=== PATIENT | female | born 1965 | race Caucasian/White ===

== ENCOUNTER 2021-03-29 10:30 | Outpatient (REF) | payer OTHER, SELFPAY ==
[2021-03-29 10:33] LABS: MANUAL DIFF FLAG NO
[2021-03-29 10:52] LABS: Basophils Percent Auto 0.6 % (0-2); Eosinophils Absolute Auto 0.4 X10*3/uL (0.0-0.4); Eosinophils Percent Auto 6.8 % (0-4); Hemoglobin 13.8 g/dl (12.0-16.0); Imm Gran Abs Auto 0.01 X10*3/uL (0.00-0.03); Imm Gran Pct Auto 0.2 % (0.0-0.4); Lymphocytes Absolute Auto 2.8 X10*3/uL (1.2-4.9); Lymphocytes Percent Auto 43.2 % (20-40); Mean Corpuscular HGB Conc 32.9 g/dl (31.0-35.0); Mean Corpuscular Volume 97.4 fL (80-98); Mean Platelet Volume 9.6 fL (9.4-12.3); Monocytes Absolute Auto 0.6 X10*3/uL (0.1-1.2); Monocytes Percent Auto 9.8 % (2-11); Neutrophils Absolute Auto 2.5 X10*3/uL (2.0-8.3); Neutrophils Percent Auto 39.4 % (45-73); Platelet Count 254 X10*3/uL (160-400); Red Blood Count 4.31 X10*6/uL (4.20-5.50); Red Cell Distribution Width 12.6 % (11.0-16.0); White Blood Count 6.4 X10*3/uL (4.8-10.8)
[2021-03-29 11:04] LABS: Estimated Average Glucose 105 mg/dL; Glucose Urine UA NEG (NEG); Hemoglobin A1c % 5.3 %; Leukocyte Esterase Urine NEG (NEG); Nitrite Urine NEG (NEG); PH 5.5 (5.0-8.0); Specific Gravity - Urine >= 1.030 (1.005-1.025); Urine Blood NEG (NEG); Urine Ketones NEG (NEG); Urine Protein NEG (NEG-TRACE)
[2021-03-29 11:05] LABS: Alanine Aminotransferase 12 U/L (0-31); Alkaline Phosphatase 101 U/L (39-117); Anion Gap 14 (12-20); Aspartate Amino Transferase 15 U/L (5-31); Bilirubin Total 0.5 mg/dL (0.0-1.0); Blood Urea Nitrogen 13 mg/dL (9-16); Calcium 9.5 mg/dL (8.4-10.2); Carbon Dioxide 26 mmol/L (22-29); Chloride 107 mmol/L (96-108); Cholesterol 215 mg/dL; Estimated Glomerular Filt Rate > 60; Glucose Fasting 97 mg/dL (60-99); HDL Cholesterol 55 mg/dL; LDL Cholesterol Calculated 129 mg/dl; Potassium 4.2 mmol/L (3.3-5.1); Sodium 143 mmol/L (135-145); Total Protein 6.7 g/dL (6.5-8.0); Triglycerides 159 mg/dL
[2021-03-29 11:07] LABS: Appearance Urine HAZY; Color Urine YELLOW
[2021-03-29 11:19] LABS: Vitamin D 25-OH Total 34.2 ng/mL (>30)
== END 2021-03-29 10:31 | disposition home or self-care (01) ==
LOC: HO.LNP 10:30
PROVIDERS: Visit Provider Internal Medicine
DX: Z00.00 Encounter for general adult medical examination without abnormal findings (principal); D72.820 Lymphocytosis (symptomatic); R73.09 Other abnormal glucose; E78.00 Pure hypercholesterolemia, unspecified
CPT/HCPCS: 80053; 80061; 81003; 82043; 82306; 83036; 85025

== ENCOUNTER 2022-03-09 08:48 | Outpatient (REF) | payer OTHER, SELFPAY ==
--- NOTE | ~2022-03-09 | MM_ITS ---
EXAMINATION: MM SCREENING DIGITAL BREAST TOMOSYNTHESIS, BILATERAL CLINICAL INFORMATION: Screening. Asymptomatic. Prior history reduction mammoplasty 2018. The lifetime risk of breast cancer based on the Tyrer-Cuzick Model is 7%. COMPARISON: Outside mammography: 09/12/2018, 08/12/2017, 07/16/2016 ([facility]) TECHNIQUE: Digital breast tomosynthesis is performed in both the craniocaudal and mediolateral oblique views along with computer-aided detection (CAD). Synthesized 2D images are generated from the tomosynthesis. FINDINGS: The breasts are heterogeneously dense, which may obscure small masses (ACR BI-RADS breast composition Category c). The breasts are symmetrically smaller and there is minor scarring consistent with the reduction mammoplasty. The right breast has an incidental oil cyst with incompletely scattered rim calcifications retroareolar 12:30 o'clock position measuring 1.5 x 1.1 x 1.4 cm. There is no significant mass or suspicious architectural changes or abnormal calcifications. The axilla are unremarkable. MM/MM tomosynthesis screening BI IMPRESSION: -No mammographic evidence of malignancy. -Postsurgical changes consistent with the reduction mammoplasty. ASSESSMENT: BI-RADS 2: Benign RECOMMENDATION: Routine annual mammography screening. This patient's information was entered into a reminder system with a target due date for their next mammogram.
== END 2022-03-09 08:49 | disposition home or self-care (01) ==
LOC: HO.MAMMO 08:48
PROVIDERS: PCP Internal Medicine; Visit Provider Internal Medicine
DX: Z12.31 Encounter for screening mammogram for malignant neoplasm of breast (principal)
CPT/HCPCS: 77063; 77067

== ENCOUNTER 2022-04-05 09:41 | Outpatient (REF) | payer OTHER, SELFPAY ==
--- NOTE | ~2022-04-05 | MM_ITS ---
EXAMINATION: BONE DENSITOMETRY CLINICAL INDICATION: Age-related osteoporosis without current pathological fracture. COMPARISON: Baseline BD dated 03/06/2020. TECHNIQUE: Using a RotaryView DXA System (software version: 13.1) manufactured by [employer], dual-energy x-ray absorptiometry was performed of the lumbar spine and left hip. The images are of good technical quality. Summary results are attached. FINDINGS: AP SPINE L1-L4: Current: BMD 0.885 g/cm2, Z-score -2.0, T-score -2.5, osteoporosis, 3.2% decrease from baseline (<5% change is not significant). Baseline: BMD 0.914 g/cm2. LEFT FEMUR, NECK: Current: BMD 0.745 g/cm2, Z-score -1.3, T-score -2.1, osteopenia. Baseline: BMD 0.680 g/cm2. LEFT FEMUR, TOTAL: Current: BMD 0.811 g/cm2, Z-score -1.2, T-score -1.6, osteopenia, 1.3% decrease from baseline (<5% change is not significant). Baseline: BMD 0.822 g/cm2. IDENTIFIED RISK FACTORS: Height loss, hysterectomy, menopause. HISTORY OF FRACTURE: None listed. MEDICATIONS: Calcium supplements or multivitamin, vitamin D. MM/XR DEXA axial skeleton IMPRESSION: 1. DIAGNOSIS: Osteoporosis based on the lowest T-score value of -2.5 in the lumbar spine applying World Health Organization criteria. 2. 10-YEAR FRACTURE RISK PREDICTION, FRAX: According to the guidelines, FRAX calculation should only be performed on patients in the osteopenia bone density category. Therefore, FRAX was not performed on this patient. 3. Treatment Recommendations: NOF guidelines recommend consideration for treatment in postmenopausal women and men age 50 and older presenting with the following: -A hip or vertebral (clinical or morphometric) fracture. -T-score less than or equal to -2.5 at the femoral neck or spine after appropriate evaluation to exclude secondary causes. -Low bone mass at the hip or spine and a 10-year fracture probability by FRAX of greater than or equal to 3% for hip fracture or greater than or equal to 20% for major osteoporotic fracture based on the [place] adapted WHO algorithm. 4. Other Recommendations: All treatment decisions require clinical judgment and consideration of individual patient factors, including patient preferences, comorbidities, previous drug use, risk factors not captured in the FRAX model (e.g. frailty, falls, vitamin D deficiency, increased bone turnover, interval significant decline in bone density) and possible under or overestimation of fracture risk by FRAX. Additional medical evaluation for secondary cause of low bone mineral density may be appropriate. FUTURE SCAN RECOMMENDATION: People with diagnosed cases of osteoporosis or at high risk for fracture should have regular bone mineral density tests. For patients eligible for Medicare, routine testing is allowed once every 2 years. The testing frequency can be increased to one year for patients who have rapidly progressing disease, those who are receiving or discontinuing medical therapy to restore bone mass, or have additional risk factors.
== END 2022-04-05 09:42 | disposition home or self-care (01) ==
LOC: HO.MAMMO 09:41
PROVIDERS: Visit Provider Internal Medicine
DX: Z13.820 Encounter for screening for osteoporosis (principal); M81.0 Age-related osteoporosis without current pathological fracture; Z78.0 Asymptomatic menopausal state
CPT/HCPCS: 77080

== ENCOUNTER 2022-12-08 11:01 | Outpatient (REF) | payer OTHER, SELFPAY ==
[2022-12-08 11:04] LABS: MANUAL DIFF FLAG NO
[2022-12-08 11:53] LABS: Basophils Absolute Auto 0.1 X10*3/uL (0.0-0.2); Eosinophils Absolute Auto 0.4 X10*3/uL (0.0-0.4); Eosinophils Percent Auto 5.7 % (0-4); Hematocrit 43.3 % (37.0-47.0); Imm Gran Abs Auto 0.02 X10*3/uL (0.00-0.03); Imm Gran Pct Auto 0.3 % (0.0-0.4); Lymphocytes Absolute Auto 2.8 X10*3/uL (1.2-4.9); Lymphocytes Percent Auto 44.8 % (20-40); Mean Corpuscular HGB Conc 32.3 g/dl (31.0-35.0); Mean Corpuscular Hemoglobin 31.6 pg (27.0-33.0); Mean Corpuscular Volume 97.7 fL (80.0-98.0); Mean Platelet Volume 9.9 fL (9.4-12.3); Monocytes Absolute Auto 0.6 X10*3/uL (0.1-1.2); Monocytes Percent Auto 10.2 % (2-11); Neutrophils Absolute Auto 2.4 x10*3/uL (2.0-8.3); Platelet Count 251 X10*3/uL (160-400); Red Blood Count 4.43 X10*6/uL (4.20-5.50); Red Cell Distribution Width 12.4 % (11.0-16.0); White Blood Count 6.3 X10*3/uL (4.8-10.8)
[2022-12-08 12:07] LABS: Estimated Average Glucose 105 mg/dL; Hemoglobin A1c % 5.3 %
[2022-12-08 12:08] LABS: Alanine Aminotransferase 13 U/L (0-31); Alkaline Phosphatase 103 U/L (39-117); Anion Gap 14 (12-20); Aspartate Amino Transferase 16 U/L (5-31); Bilirubin Total 0.8 mg/dL (0.0-1.0); Blood Urea Nitrogen 15 mg/dL (9-16); Calcium 9.2 mg/dL (8.4-10.2); Carbon Dioxide 29 mmol/L (22-29); Chloride 106 mmol/L (96-108); Cholesterol 244 mg/dL; Estimated Glomerular Filt Rate > 60; Glucose Fasting 95 mg/dL (60-99); HDL Cholesterol 54 mg/dL; LDL Cholesterol Calculated 172 mg/dl; Potassium 4.6 mmol/L (3.3-5.1); Sodium 144 mmol/L (135-145); Total Protein 6.6 g/dL (6.5-8.0); Triglycerides 90 mg/dL
[2022-12-08 12:25] LABS: Vitamin D 25-OH Total 30.5 ng/mL (>30)
[2022-12-08 12:37] LABS: Creatinine Urine 112.13 mg/dL; Microalbumin Urine < 5.0 mg/L
== END 2022-12-08 11:02 | disposition home or self-care (01) ==
LOC: HO.LNP 11:01
PROVIDERS: Visit Provider Internal Medicine
DX: Z00.00 Encounter for general adult medical examination without abnormal findings (principal); R73.03 Prediabetes; E55.9 Vitamin D deficiency, unspecified; E78.00 Pure hypercholesterolemia, unspecified; D72.820 Lymphocytosis (symptomatic)
CPT/HCPCS: 80053; 80061; 82043; 82306; 83036; 85025

== ENCOUNTER 2023-06-21 08:15 | Outpatient (REF) | payer OTHER, SELFPAY ==
--- NOTE | ~2023-06-21 | XR_ITS ---
EXAMINATION: XR KNEE, LEFT CLINICAL INFORMATION: Pain COMPARISON: None available. TECHNIQUE: Four views of the left knee. FINDINGS: No fracture or joint effusion. Alignment is anatomic. Joint spaces are maintained. No abnormal soft tissue calcification. XR/XR knee LT 3V IMPRESSION: No significant osseous changes to explain patient's pain symptoms, if remain symptomatic consider correlation with follow-up MRI to assess for possible soft tissue derangements such as cruciate and/or meniscal tears.
== END 2023-06-21 08:16 | disposition home or self-care (01) ==
LOC: HO.HOSX 08:15
PROVIDERS: PCP Internal Medicine; Visit Provider Physical Medicine & Rehabilitation
DX: M76.52 Patellar tendinitis, left knee (principal)
CPT/HCPCS: 73562

== ENCOUNTER 2023-06-21 08:15 | Outpatient (AMB) | payer OTHER, SELFPAY ==
--- NOTE | 2023-06-21 08:19 | A.OFFVIS_ITS ---
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 Feels that the knee is weak and that it will give out on her when weight bearing. She is taking ibuprofen and uses ice application. She has had a martin cyst removed from the posterior aspect of the left knee that was removed about 20 years ago. she also explaind that she has history of meniscal tear that wa treated non operatively. Denies numbness and tingling. Allergies morphine [MORPHINE] Allergy (Intermediate, Unverified 04/30/20 15:25) ITCHING sulfamethoxazole [From BACTRIM] Allergy (Intermediate, Unverified 04/30/20 15:25) VOMITING trimethoprim [From BACTRIM] Allergy (Intermediate, Unverified 04/30/20 15:25) VOMITING From PERCOCET Allergy (Intermediate, Uncoded 04/30/20 15:25) ITCHING percocet Allergy (Unknown, Uncoded 07/26/11 00:00) itching Medication List - Last Reconciled 06/21/23 by Rhoda Cerrato MD paroxetine HCl 20 mg PO DAILY propranolol ER 120 mg PO DAILY sumatriptan succinate 100 mg PO DAILY PRN HPI HPI Comments History of Present Illness Details Referred by PCP Dr. Gill. At least 6 months of left knee pain. Denies inciting injuries. Feel weak pointing to thigh and medial aspects of knee. Swells up few times a week but not in the knee joint itself, very sensitive. No numbness. Worse with walking or stairs. No foot drop. No bladder/bowel changes. No recent imaging. The spasms on her thigh can be visible. She denies any other fasciculations on other parts of her body. She denies ongoing back or neck pain. History of migraine. No other medical condition. Works as [employer]. Treatment done so far: NSAIDs ibuprofen as needed ice [facility] Surgical History (Updated 06/21/23 @ 08:25 by Mercedes Bal [facility]) History of left knee surgery Hx of breast reduction, elective History of hysterectomy History of cholecystectomy Social History (Updated 06/21/23 @ 08:25 by Mercedes Bal CMA) Patient Tobacco Use Status: Never used Tobacco Current occupational status: employed Current occupation: Principal Review of Systems [employer] All systems reviewed & are unremarkable except as noted in HPI and below Physical Exam Vital Signs: BMI result Body Mass Index 29.2 Constitutional: Patient appears to be in no acute distress, well nourished and well developed. MSK: No specific abnormalities found on inspection of the spine and all extremities. Lumbar ROM was full. Bilateral hip, knee and ankle ROM WNL. No ligamentous laxity or crepitant on examination of knees while seated or lying down. Did hear crepitus on left knee with squatting down. No increased effusion. No joint line tenderness. Very sensitive over patella tendon left, with hyperflexion on slight touch. Patellar grind test is positive. Visible spasm on left medial thigh/vastus. Does not appear to be true fasciculation though. Anterior drawer test is negative. Melodie test is negative. Posterior drawer test is negative. Valgus and varus stress tests are negative. Gissel test is negative. Strength is 5/5 in all muscle groups tested. No increased tone noted. Neurological: Neurologic examination of the upper and lower extremities was nonfocal with intact sensation, muscle stretch reflexes and without focal motor deficits . Motta?s negative bilaterally. Babinski was down going bilaterally. Clonus was negative. Gait is non-antalgic without loss of balance. Can stand on 1 leg at a time. Can squat. Assessment & Plan Assessment & Plan (1) Patellar tendinitis of left knee: Code(s): M76.52 - Patellar tendinitis, left knee (2) Knee pain: Code(s): M25.569 - Pain in unspecified knee Qualifiers: Chronicity: chronic Laterality: left Qualified Code(s): M25.562 - Pain in left knee; G89.29 - Other chronic pain Plan At least 6 months of left knee pain, exam today showing sensitivity on palpation of left patellar tendon, with hyperreflexia on left knee/patella? There are no other signs on exam for meniscal or ligamentous or bony issues of left knee. She does not have back pain and nothing to suggest on exam for lumbar radiculopathy or myelopathy. I suspect this is focal sensitivity and inflammation of left patellar tendon which has led to sensitivity and brisk reflex. Xray done in the office - independently reviewed. No fracture. Joint space preserved. Patella slightly medially tracking? Swelling on left tendon? Await final reading. Start with PT. I have not seen much benefit to patellar tendinitis in past with steroid injection. Perhaps we can consider PRP injection in the future? Can continue to ice. Consider trial of anti spasticity medication. Unfortunately tizanidine would interact with propranolol. Will trial baclofen 5 mg q.h.s. instead. Start on weekend, watch out for sedation. Side effects discussed. Watch out for any spread of fasciculations, development of numbness, development of back or neck pain. To call the office if any. Assessment and plan discussed with patient, and patient was agreeable. All questions were answered thoroughly. Follow-up in 4 weeks. Rhoda Cerrato MD, DAVONTE Board Certified, [place] [employer] and Rehabilitation (ABPMR) Board Certified, [place] Board [employer] Electrodiagnostic [employer] (ABEM) Orders: Orders XR knee LT 3V Today M25.50 - Pain in unspecified joint, M25.569 - Pain in unspecified knee, M76.52 - Patellar tendinitis, left knee PT Evaluation and Treatment Today M25.569 - Pain in unspecified knee, M76.52 - Patellar tendinitis, left knee Medications: New baclofen 5 mg PO BEDTIME PRN 30 tabs 0RF spasms Coding Level of Care Code New Pt Level 4 (48318) Diagnoses Patellar tendinitis of left knee M76.52 Chronic pain of left knee M25.562; G89.29 Chronicity: chronic Laterality: left
[2023-06-21 08:20] VITALS: BMI 29.2
== END 2023-06-21 09:11 | disposition home or self-care (01) ==
PROVIDERS: PCP Internal Medicine; Visit Provider Physical Medicine & Rehabilitation
DX: M76.52 Patellar tendinitis, left knee (principal); M25.562 Pain in left knee; G89.29 Other chronic pain
CPT/HCPCS: 99204

== ENCOUNTER 2023-12-11 10:47 | Outpatient (REF) | payer OTHER, SELFPAY ==
[2023-12-11 10:52] LABS: MANUAL DIFF FLAG NO
[2023-12-11 11:49] LABS: Basophils Absolute Auto 0.1 X10*3/uL (0.0-0.2); Basophils Percent Auto 0.7 % (0-2); Eosinophils Absolute Auto 0.6 X10*3/uL (0.0-0.4); Eosinophils Percent Auto 8.1 % (0-4); Hematocrit 42.5 % (37.0-47.0); Imm Gran Abs Auto 0.03 X10*3/uL (0.00-0.03); Imm Gran Pct Auto 0.4 % (0.0-0.4); Lymphocytes Percent Auto 43.8 % (20-40); Mean Corpuscular HGB Conc 32.9 g/dl (31.0-35.0); Mean Corpuscular Hemoglobin 32.3 pg (27.0-33.0); Mean Corpuscular Volume 97.9 fL (80.0-98.0); Mean Platelet Volume 9.6 fL (9.4-12.3); Monocytes Absolute Auto 0.7 X10*3/uL (0.1-1.2); Neutrophils Absolute Auto 2.5 x10*3/uL (2.0-8.3); Platelet Count 268 X10*3/uL (160-400); Red Blood Count 4.34 X10*6/uL (4.20-5.50); Red Cell Distribution Width 12.7 % (11.0-16.0); White Blood Count 6.9 X10*3/uL (4.8-10.8)
[2023-12-11 12:15] LABS: Appearance Urine Cloudy; Color Urine Yellow; Glucose Urine UA Negative (Negative); Leukocyte Esterase Urine Moderate (2+) (Negative); Nitrite Urine Negative (Negative); UMIC TRIGGER UACC YES; Urine Blood Negative (Negative); Urine Ketones Negative (Negative); Urine Protein Negative (Neg-Trace)
[2023-12-11 12:57] LABS: Bacteria Urine 1+ (None Seen); Calcium Oxalate Crystals Urine Present; Hyaline Casts Urine 0-2 /LPF (0-2); RBC Urine 0-2 /HPF (0-2); WBC Urine 0-5 /HPF (0-5)
[2023-12-11 13:24] LABS: Alanine Aminotransferase 18 U/L (0-31); Alkaline Phosphatase 89 U/L (39-117); Anion Gap 9 (12-20); Aspartate Amino Transferase 19 U/L (5-31); Bilirubin Total 0.8 mg/dL (0.0-1.0); Blood Urea Nitrogen 19 mg/dL (9-16); Calcium 9.7 mg/dL (8.4-10.2); Carbon Dioxide 31 mmol/L (22-29); Chloride 104 mmol/L (96-108); Cholesterol 241 mg/dL (<200); Estimated Glomerular Filt Rate > 60; Glucose Fasting 86 mg/dL (60-99); HDL Cholesterol 57 mg/dL (>40); LDL Cholesterol Calculated 154 mg/dL (<100); Potassium 4.1 mmol/L (3.3-5.1); Sodium 140 mmol/L (135-145); Total Protein 7.1 g/dL (6.5-8.0); Triglycerides 151 mg/dL (<150)
[2023-12-11 13:34] LABS: Vitamin D 25-OH Total 38.1 ng/mL (>30)
== END 2023-12-11 10:48 | disposition home or self-care (01) ==
LOC: HO.LNP 10:47
PROVIDERS: Visit Provider Internal Medicine
DX: Z00.00 Encounter for general adult medical examination without abnormal findings (principal); D72.820 Lymphocytosis (symptomatic); E78.00 Pure hypercholesterolemia, unspecified; E55.9 Vitamin D deficiency, unspecified
CPT/HCPCS: 80053; 80061; 81001; 82306; 85025

== ENCOUNTER 2023-12-28 15:42 | Outpatient (REF) | payer OTHER, SELFPAY ==
--- NOTE | ~2023-12-28 | US_ITS ---
EXAMINATION: US EXTREMITY BILATERAL, NONVASCULAR CLINICAL INFORMATION: Lipoma, right lower extremity. COMPARISON: None available. TECHNIQUE: High-frequency linear ultrasound transducer was used to examine the areas of clinical concern in the right thigh as well as one area in the left thigh. FINDINGS: In the right thigh, there are 3 ovoid areas of increased echogenicity with the largest measuring 2.3 x 1.8 x 0.5 cm. These demonstrate no internal vascularity and have appearances consistent with lipomas. In the left thigh, 2 similar areas are seen, the largest of which measures 1.5 x 0.9 x 1.3 cm, also consistent with lipomas. No other masses are seen. US/US extremity nonvascular IMPRESSION: Bilateral thigh masses with ultrasound characteristics of lipomas.
== END 2023-12-28 15:43 | disposition home or self-care (01) ==
LOC: HO.US 15:42
PROVIDERS: PCP Internal Medicine; Visit Provider Internal Medicine
DX: D17.23 Benign lipomatous neoplasm of skin and subcutaneous tissue of right leg (principal)
CPT/HCPCS: 76882

== ENCOUNTER 2024-05-24 12:27 | Outpatient (REF) | payer BC, SELFPAY ==
[2024-05-24 14:15] LABS: Alanine Aminotransferase 75 U/L (0-31); Albumin Level 4.3 g/dL (3.5-5.0); Alkaline Phosphatase 123 U/L (39-117); Aspartate Amino Transferase 26 U/L (5-31); Bilirubin Direct 0.3 mg/dL (0.0-0.5); Bilirubin Total 0.9 mg/dL (0.0-1.0); Total Protein 7.6 g/dL (6.5-8.0)
== END 2024-05-24 12:28 | disposition home or self-care (01) ==
LOC: HO.LAB 12:27
PROVIDERS: Visit Provider Internal Medicine
DX: R79.89 Other specified abnormal findings of blood chemistry (principal)
CPT/HCPCS: 36415; 80076

== ENCOUNTER 2024-05-29 09:40 | Outpatient (REF) | payer BC, SELFPAY ==
--- NOTE | ~2024-05-29 | MM_ITS ---
EXAMINATION: MM DIAGNOSTIC DIGITAL BREAST TOMOSYNTHESIS, BILATERAL US BREAST LIMITED, RIGHT MAMMOGRAPHY: CLINICAL INFORMATION: Palpable abnormality right breast retroareolar location 12:00 axis. Due for yearly. History of breast reduction surgery 2019. Known oil cyst 12:00 location retroareolar. COMPARISON: Mammography: 03/09/2022, 09/12/2018, 08/12/2017, and dating back to 2016. TECHNIQUE: Digital breast tomosynthesis is performed in both the craniocaudal and mediolateral oblique views along with computer-aided detection (CAD). Synthesized 2D images are generated from the tomosynthesis. In addition to standard views, spot compression 3-D right MLO and CC views were obtained of the palpable region of concern. FINDINGS: The breasts are heterogeneously dense, which may obscure small masses (ACR BI-RADS breast composition Category c). BB marker has been placed in the 12:00 axis periareolar right breast, marking the area of palpable concern. Stress only subjacent to this is a calcified oil cyst, similar to the prior exam, with progressive calcification measuring approximately 1.5 cm. This appears to correlate with the palpable focus, however will be evaluated with ultrasound. Otherwise, there is stable post mammoplasty scarring in both breasts. There are no suspicious masses, suspicious grouped calcifications, or developing areas of architectural distortion in either breast. The parenchymal pattern is stable from prior exams. There is no skin or axillary abnormality. ULTRASOUND: CLINICAL INFORMATION: As above. COMPARISON: None TECHNIQUE: Targeted sonographic evaluation was performed using a high frequency linear transducer. Attention was given to the 12:00 axis periareolar region right breast, to evaluate the area of palpable concern. Selected archived documentation. FINDINGS: RIGHT BREAST: There is redemonstration of a benign partially calcified oil cyst measuring 1.0 x 1.1 x 1.1 cm directly subjacent to the BB marker, correlating with the area of palpable concern. This is benign. There are no suspicious findings. MM/MM tomosynthesis diagnostic BI IMPRESSION: There are no findings in either breast suspicious for malignancy. Palpable area of concern 12:00 periareolar right breast correlates with known partially calcified oil cyst. Additional benign findings related to prior breast reduction surgery. Recommend the patient resume routine annual screening mammography. OVERALL ASSESSMENT: Mammography: BI-RADS 2 - Benign Findings Ultrasound: BI-RADS 2 - Benign Findings RECOMMENDATION: 1 year F/U This patient's information was entered into a reminder system with a target due date for their next mammogram. Electronically signed by: Vinod Heller MD 05/29/2024 01:01 PM EDT
== END 2024-05-29 09:41 | disposition home or self-care (01) ==
LOC: HO.MAMMO 09:40
PROVIDERS: PCP Internal Medicine; Visit Provider Internal Medicine
DX: N63.15 Unspecified lump in the right breast, overlapping quadrants (principal)
CPT/HCPCS: 76642; 77062; 77066

== ENCOUNTER → 2024-05-29 10:00 | Outpatient (BNV) | payer BC, SELFPAY | PROVIDERS: PCP Internal Medicine; Visit Provider Radiology Diagnostic Radiology | DX: R92.1 Mammographic calcification found on diagnostic imaging of breast (principal) | CPT/HCPCS: 76642; 77062; 77066 ==

== ENCOUNTER 2024-06-28 10:37 | Outpatient (REF) | payer BC, SELFPAY ==
[2024-06-28 12:02] LABS: Alanine Aminotransferase 22 U/L (0-31); Albumin Level 3.8 g/dL (3.5-5.0); Alkaline Phosphatase 96 U/L (39-117); Aspartate Amino Transferase 21 U/L (5-31); Bilirubin Direct 0.3 mg/dL (0.0-0.5); Bilirubin Total 0.7 mg/dL (0.0-1.0); Total Protein 6.6 g/dL (6.5-8.0)
== END 2024-06-28 10:38 | disposition home or self-care (01) ==
LOC: HO.LNP 10:37
PROVIDERS: Visit Provider Internal Medicine
DX: R10.9 Unspecified abdominal pain (principal)
CPT/HCPCS: 80076

== ENCOUNTER 2024-12-16 11:15 | Outpatient (REF) | payer BC, SELFPAY ==
[2024-12-16 11:19] LABS: MANUAL DIFF FLAG NO
[2024-12-16 12:29] LABS: Basophils Absolute Auto 0.1 X10*3/uL (0.0-0.2); Eosinophils Absolute Auto 0.5 X10*3/uL (0.0-0.4); Eosinophils Percent Auto 7.9 % (0-4); Hematocrit 42.4 % (37.0-47.0); Hemoglobin 14.2 g/dl (12.0-16.0); Imm Gran Abs Auto 0.02 X10*3/uL (0.00-0.03); Imm Gran Pct Auto 0.3 % (0.0-0.4); Lymphocytes Absolute Auto 3.2 X10*3/uL (1.2-4.9); Lymphocytes Percent Auto 49.9 % (20-40); Mean Corpuscular HGB Conc 33.5 g/dl (31.0-35.0); Mean Corpuscular Hemoglobin 31.8 pg (27.0-33.0); Mean Corpuscular Volume 95.1 fL (80.0-98.0); Mean Platelet Volume 9.7 fL (9.4-12.3); Monocytes Absolute Auto 0.6 X10*3/uL (0.1-1.2); Neutrophils Percent Auto 30.9 % (45-73); Platelet Count 251 X10*3/uL (160-400); Red Blood Count 4.46 X10*6/uL (4.20-5.50); Red Cell Distribution Width 12.8 % (11.0-16.0); White Blood Count 6.3 X10*3/uL (4.8-10.8)
[2024-12-16 12:40] LABS: Appearance Urine Clear; Color Urine Yellow; Glucose Urine UA Negative (Negative); Leukocyte Esterase Urine Moderate (2+) (Negative); Nitrite Urine Negative (Negative); PH 5.5 (5.0-9.0); Specific Gravity - Urine 1.025 (1.005-1.025); UMIC TRIGGER UACC YES; Urine Blood Negative (Negative); Urine Ketones Trace mg/dL (Negative); Urine Protein Negative (Neg-Trace)
[2024-12-16 12:48] LABS: Bacteria Urine None Seen (None Seen); Hyaline Casts Urine 0-2 /LPF (0-2); RBC Urine 0-2 /HPF (0-2); UACC Culture Trigger YES
[2024-12-16 12:57] LABS: Creatinine Urine 240.59 mg/dL; Microalbum/Creatinine Ratio Ur 3.7 ug/mg cr (<30)
[2024-12-16 13:04] LABS: Estimated Average Glucose 103 mg/dL; Hemoglobin A1C 122.4694 umol/L; Hemoglobin A1c % 5.2 % (<6.0)
--- OUTSIDE RECORDS SUMMARY | 2024-12-16 13:05 | XMS_ITS | Patient Health Record ---
Author Organization Bry Gill MD Address [address] [place], [place] [id number] Care Team Providers Care Senior Occupational Therapist Name Role Phone Bry Gill Primary Care Provider Allergies Allergen (clinical drug ingredient) Drug/Non Drug Allergy documented on EMR Reaction Allergy Type Onset Date Status flexeril (uncoded) burning skin Allergy Active sulfamethoxazole / trimethoprim bactrim (uncoded) vomiting Allergy Active morphine morphine (uncoded) itch Allergy Active Results Component Value Reference Range Notes Liver Panel Reviewed date:06/28/2024 12:15:42 PM Interpretation: Performing Lab:[facility], [address] [place] [id number] Notes/Report: Bilirubin Total 0.7 0.0-1.0 mg/dL Bilirubin Direct 0.3 0.0-0.5 mg/dL Aspartate Amino Transferase 21 5-31 U/L Alanine Aminotransferase 22 0-31 U/L Total Protein 6.6 6.5-8.0 g/dL Albumin Level 3.8 3.5-5.0 g/dL Alkaline Phosphatase 96 39-117 U/L Microalbumin, Random (Not ye t reviewed by provider) Interpretation: Performing Lab:[address] [address] Notes/Report: Creatinine Urine 240.59 Microalbumin Urine 9.0 Microalbum/Creatinine Ratio Ur 3.7 <30 ug/mg cr Albumin/Creatinine Ratio Reference Ranges: Normal: < 30 ug/mg creatinine Microalbuminuria: 30 - 300 ug/mg creatinine Clinical Albuminuria: > 300 ug/mg creatinine UA ClnCatch+Micro w/rflx Cul t (Not yet reviewed by provider) Interpretation: Performing Lab:[address] [address] Notes/Report: Urine, Clean Catch Color Urine Yellow Appearance Urine Clear PH 5.5 5.0-9.0 Glucose Urine UA Negative Negative mg/dL Urine Blood Negative Negative Specific Brule - Urine 1.025 1.005-1.025 Urine Protein Negative Neg-Trace mg/dL Urine Ketones Trace Negative mg/dL Nitrite Urine Negative Negative Leukocyte Esterase Urine Moderate (2+) Negative RBC Urine 0-2 0-2 /HPF WBC Urine 6-10 0-5 /HPF Squamous Epithelial Cell Urine 3-5 0-2 /HPF Bacteria Urine None Seen None Seen Hyaline Casts Urine 0-2 0-2 /LPF Complete Blood Count Auto Di ff Reviewed date:12/16/2024 12:38:58 PM Interpretation: Performing Lab:[address] [address] Notes/Report: White Blood Count 6.3 4.8-10.8 X10*3/uL [...] X10*3/uL NRBC Abs Auto 0.000 0.0-0.012 X10*3/uL Liver Panel Reviewed date:05/30/2024 08:03:27 AM Interpretation: Performing Lab:[facility], [address] [place] [id number] Notes/Report: Bilirubin Total 0.9 0.0-1.0 mg/dL Bilirubin Direct 0.3 0.0-0.5 mg/dL Aspartate Amino Transferase 26 5-31 U/L Alanine Aminotransferase 75 0-31 U/L Total Protein 7.6 6.5-8.0 g/dL Albumin Level 4.3 3.5-5.0 g/dL Alkaline Phosphatase 123 39-117 U/L US extremity nonvascular Reviewed date:01/08/2024 01:43:28 PM Interpretation: Performing Lab: Notes/Report: [address] [address] Ultrasound Report Signed Patient: Meli Hines MR#: [id number] : 1965 Acct:[id number] Age/Sex: 58 / F ADM Date: 12/28/23 Loc: HO.US Attending Dr: Bry Gill MD Ordering Physician: Bry Gill MD Date of Service: 12/28/23 Procedure(s): US extremity nonvascular Accession Number(s): [id number] cc: Bry Gill MD EXAMINATION: US EXTREMITY BILATERAL, NONVASCULAR CLINICAL INFORMATION: Lipoma, right lower extremity. COMPARISON: None available. TECHNIQUE: High-frequency linear ultrasound transducer was used to examine the areas of clinical concern in the right thigh as well as one area in the left thigh. FINDINGS: In the right thigh, there are 3 ovoid areas of increased echogenicity with the largest measuring 2.3 x 1.8 x 0.5 cm. These demonstrate no internal vascularity and have appearances consistent with lipomas. In the left thigh, 2 similar areas are seen, the largest of which measures 1.5 x 0.9 x 1.3 cm, also consistent with lipomas. No other masses are seen. US/US extremity nonvascular IMPRESSION: Bilateral thigh masses with ultrasound characteristics of lipomas. Dictated By: Julián Moon MD Signed By: <Electronically signed by Julián Moon MD in OV> 01/06/242146 DD/ 1615 TD/TT: Digital Communications Manager: [place] [address] Ultrasound Report Signed Patient: Meli Hines MR#: [id number] : 1965 Acct:[id number] Age/Sex: 58 / F ADM Date: 12/28/23 Loc: .US Attending Dr: Bry Gill MD Ordering Physician: Bry Gill MD Date of Service: 12/28/23 Procedure(s): US extremity nonvascular Accession Number(s): [id number] cc: Bry Gill MD EXAMINATION: US EXTREMITY BILATER AL, NONVASCULAR CLINICAL INFORMATION: Lipoma, right lower extremity. COMPARISON: None available. TECHNIQUE: High-frequency linea r ultrasound transducer was used to examine the areas of clinical concern in the right thigh as well as one area in the left thigh. FINDINGS: In the right thigh, there are 3 ovoid areas of increased echogenicity with the largest measuring 2.3 x 1.8 x 0.5 cm. These demonstrate no internal vascularity and have appearances consistent with lipomas. In the left thigh, 2 similar areas are seen, the largest of which measures 1.5 x 0.9 x 1.3 cm, also consistent with lipomas. No other masses are seen. U S/US extremity nonvascular IMPRESSION: Bilateral thigh mass es with ultrasound characteristics of lipomas. Dictated By: Julián Moon MD Signed By: <Electronically signed by Julián Moon MD in OV> 01/06/247 DD/ 1615 TD/TT: Rim Buster ist: SS MM tomosynthesis diagnostic BI Reviewed date:05/29/2024 02:14:02 PM Interpretation: Performing Lab: Notes/Report: [facility] [address] [place] [address] Mammography Report Signed Patient: Meli Hines MR#: [id number] : 1965 Acct:[id number] Age/Sex: 58 / F ADM Date: 05/29/24 Loc: HO.MAMMO Attending Dr: Bry Gill MD Ordering Physician: Bry Gill MD Results: 2Be nign Findings Date of Service: 05/29/24 Follow Up: 1 Year From [facility] Mammogram Procedure(s): MM tomosynthesis diagnostic BI Accession Number(s): [id number] cc: Bry Gill MD EXAMINATION: MM DIAGNOSTIC DIGITAL BREAST TOMOSYNTHESIS, BILATERAL US BREAST LIMITED, RIGHT MAMMOGRAPHY: CLINICAL INFORMATION: Palpable abnormality right breast retroareolar location 12:00 axis. Due for yearly. History of breast reduction surgery 2019. Known oil cyst 12:00 location retroareolar. COMPARISON: Mammography: 03/09/2022, 09/12/2018, 08/12/2017, and dating back to 2016. TECHNIQUE: Digital breast tomosynthesis is performed in both the craniocaudal and mediolateral oblique views along with computer-aided detection (CAD). Synthesized 2D images are generated from the tomosynthesis. In addition to standard views, spot compression 3-D right MLO and CC views were obtained of the palpable region of concern. FINDINGS: The breasts are heterogeneously dense, which may obscure small masses (ACR BI-RADS breast composition Category c). BB marker has been placed in the 12:00 axis periareolar right breast, marking the area of palpable concern. Stress only subjacent to this is a calcified oil cyst, similar to the prior exam, with progressive calcification measuring approximately 1.5 cm. This appears to correlate with the palpable focus, however will be evaluated with ultrasound. Otherwise, there is stable post mammoplasty scarring in both breasts. There are no suspicious masses, suspicious grouped calcifications, or developing areas of architectural distortion in either breast. The parenchymal pattern is stable from prior exams. There is no skin or axillary abnormality. ULTRASOUND: CLINICAL INFORMATION: As above. COMPARISON: None TECHNIQUE: Targeted sonographic evaluation was performed using a high frequency linear transducer. Attention was given to the 12:00 axis periareolar region right breast, to evaluate the area of palpable concern. Selected archived documentation. FINDINGS: RIGHT BREAST: There is redemonstration of a benign partially calcified oil cyst measuring 1.0 x 1.1 x 1.1 cm directly subjacent to the BB marker, correlating with the area of palpable concern. This is benign. There are no suspicious findings. MM/MM tomosynthesis diagnostic BI IMPRESSION: There are no findings in either breast suspicious for malignancy. Palpable area of concern 12:00 periareolar right breast correlates with known partially calcified oil cyst. Additional benign findings related to prior breast reduction surgery. Recommend the patient resume routine annual screening mammography. OVERALL ASSESSMENT: Mammography: BI-RADS 2 - Benign Findings Ultrasound: BI-RADS 2 - Benign Findings RECOMMENDATION: 1 year F/U This patient's information was entered into a reminder system with a target due date for their next mammogram. Electronically signed by: Vinod Heller MD 05/29/2024 01:01 PM EDT Dictated By: Vinod Heller MD Signed By: <Electronically signed by Vinod Heller MD in OV> 05/29/24 1301 DD/ 1000 TD/TT: 05/29/24 1013 Digital Communications Manager: [place] [facility] [address] [place] [address] Mammography Report Signed Patient: Meli Hines MR#: [id number] : 1965 Acct:[id number] Age/Sex: 58 / F ADM Date: 05/29/24 Loc: HO.MAMMO Attending Dr: Bry Gill MD Ordering Physician: Bry Gill MD Results: 2Be nign Findings Date of Service: 05/29/24 Follow Up: 1 Year From Orig inal Mammogram Procedure(s): MM tomosynthesis diagnostic BI Accession Number(s): [id number] cc: Bry Gill MD EXAMINATION: MM DIAGNOSTIC DIGITA L BREAST TOMOSYNTHESIS, BILATERAL US BREAST LIMITED, RIGHT MAMMOGRAPHY: CLINICAL INFORMATION: Palpable abnormality right breast retroareolar location 12:00 axis. Due for yearly. History of breast reduction surgery 2018. Known oil cyst 12:00 location retroareolar. COMPARISON: Mammography: 03/09/20 22, 09/12/2018, 08/12/2017, and dating back to 2015. TECHNIQUE: Digital breast tomosynthesis is performed in both the craniocaudal and mediolateral oblique views along with computer-aided detection (CAD). Synthesized 2D image s are generated from the tomosynthesis. In addition to standard views, s pot compression 3-D right MLO and CC views were obtained of the palp able region of concern. FINDINGS: The breasts are heterogeneously dense, which may obscure small masses (ACR BI-RADS breast composition Category c). BB marker has been placed in the 12:00 axis periareolar right breast, marking the area of palpable concern. Stress only subjacent to this is a calcified oil cyst , similar to the prior exam, with progressive calcification measur ing approximately 1.5 cm. This appears to correlate with the palpable fo cus, however will be evaluated with ultrasound. Otherwise, there is stable post mammoplasty scarring in both breasts. There are no suspici ous masses, suspicious grouped calcifications, or developing areas of architectural distortion in either breast. The parenchymal pattern is stable from prior exams. There is no skin or axillary abnormality. ULTRASOUND: CLINICAL INFORMATION: As above. COMPARISON: None TECHNIQUE: Targeted sonographic evaluation was performed using a high frequency linear transducer. Attention was given to the 12:00 axis periareolar region right breast, to evaluate the area of palpable concern. Selected archived documentation. FINDINGS: RIGHT BREAST: There is redemonstration of a benign partially calcified oil cyst measuring 1 .0 x 1.1 x 1.1 cm directly subjacent to the BB marker, correlating with the area of palpable concern. This is benign. There are no suspici ous findings. M M/MM tomosynthesis diagnostic BI IMPRESSION: There are no finding s in either breast suspicious for malignancy. Palpable area of con cern 12:00 periareolar right breast correlates with known partially calcified oil cyst. Additional benign findings related to prior breast reduction surgery. Recommend the patien t resume routine annual screening mammography. OVERALL ASSESSMENT: Mammography: BI-RADS 2 - Benign Findings Ultrasound: BI-RADS 2 - Benign Findings RECOMMENDATION: 1 year F/U This patient's information was entered into a reminder system with a target due date for their next mammogram. Electronically leonardo d by: Vinod Heller MD 05/29/2024 01:01 PM EDT Dictated By: Vinod Heller MD Signed By: <Electronically signed by Vinod Heller MD in OV> 05/29/24 1301 DD/ 1000 TD/TT: 05/29/24 1013 Digital Communications Manager: US breast RT limited mamm on ly Reviewed date:05/30/2024 08:03:30 AM Interpretation: Performing Lab: Notes/Report: [facility] [address] [place], [place] [address] Ultrasound Report Signed Patient: Meli Hines MR#: [id number] : 1965 Acct:[id number] Age/Sex: 58 / F ADM Date: 05/29/24 Loc: HO.MAMMO Attending Dr: Bry Gill MD Ordering Physician: Bry Gill MD Date of Service: 05/29/24 Procedure(s): US breast RT limited mamm only Accession Number(s): [id number] cc: Bry Gill MD EXAMINATION: MM DIAGNOSTIC DIGITAL BREAST TOMOSYNTHESIS, BILATERAL US BREAST LIMITED, RIGHT MAMMOGRAPHY: CLINICAL INFORMATION: Palpable abnormality right breast retroareolar location 12:00 axis. Due for yearly. History of breast reduction surgery 2019. Known oil cyst 12:00 location retroareolar. COMPARISON: Mammography: 03/09/2022, 09/12/2018, 08/12/2017, and dating back to 2015. TECHNIQUE: Digital breast tomosynthesis is performed in both the craniocaudal and mediolateral oblique views along with computer-aided detection (CAD). Synthesized 2D images are generated from the tomosynthesis. In addition to standard views, spot compression 3-D right MLO and CC views were obtained of the palpable region of concern. FINDINGS: The breasts are heterogeneously dense, which may obscure small masses (ACR BI-RADS breast composition Category c). BB marker has been placed in the 12:00 axis periareolar right breast, marking the area of palpable concern. Stress only subjacent to this is a calcified oil cyst, similar to the prior exam, with progressive calcification measuring approximately 1.5 cm. This appears to correlate with the palpable focus, however will be evaluated with ultrasound. Otherwise, there is stable post mammoplasty scarring in both breasts. There are no suspicious masses, suspicious grouped calcifications, or developing areas of architectural distortion in either breast. The parenchymal pattern is stable from prior exams. There is no skin or axillary abnormality. ULTRASOUND: CLINICAL INFORMATION: As above. COMPARISON: None TECHNIQUE: Targeted sonographic evaluation was performed using a high frequency linear transducer. Attention was given to the 12:00 axis periareolar region right breast, to evaluate the area of palpable concern. Selected archived documentation. FINDINGS: RIGHT BREAST: There is redemonstration of a benign partially calcified oil cyst measuring 1.0 x 1.1 x 1.1 cm directly subjacent to the BB marker, correlating with the area of palpable concern. This is benign. There are no suspicious findings. US/US breast RT limited mamm only IMPRESSION: There are no findings in either breast suspicious for malignancy. Palpable area of concern 12:00 periareolar right breast correlates with known partially calcified oil cyst. Additional benign findings related to prior breast reduction surgery. Recommend the patient resume routine annual screening mammography. OVERALL ASSESSMENT: Mammography: BI-RADS 2 - Benign Findings Ultrasound: BI-RADS 2 - Benign Findings RECOMMENDATION: 1 year F/U This patient's information was entered into a reminder system with a target due date for their next mammogram. Electronically signed by: Vinod Heller MD 05/29/2024 01:01 PM EDT RP Dictated By: Vinod Heller MD Signed By: <Electronically signed by Vinod Heller MD in OV> 05/29/24 1301 DD/ 1015 TD/TT: 05/29/24 1036 Digital Communications Manager: [place] [facility] [address] [place] [address] Ultrasound Report Signed Patient: Meli Hines MR#: [id number] : 1965 Acct:[id number] Age/Sex: 58 / F ADM Date: 05/29/24 Loc: HO.MAMMO Attending Dr: Bry Gill MD Ordering Physician: Bry Gill MD Date of Service: 05/29/24 Procedure(s): US margaret ast RT limited mamm only Accession Number(s): [id number] cc: Bry Gill MD EXAMINATION: MM DIAGNOSTIC DIGITA L BREAST TOMOSYNTHESIS, BILATERAL US BREAST LIMITED, RIGHT MAMMOGRAPHY: CLINICAL INFORMATION: Palpable abnormality right breast retroareolar location 12:00 axis. Due for yearly. History of breast reduction surgery 2019. Known oil cyst 12:00 location retroareolar. COMPARISON: Mammography: 03/09/20, 09/12/2018, 08/12/2017, and dating back to 2016. TECHNIQUE: Digital breast tomosynthesis is performed in both the craniocaudal and mediolateral oblique views along with computer-aided detection (CAD). Synthesized 2D image s are generated from the tomosynthesis. In addition to standard views, s pot compression 3-D right MLO and CC views were obtained of the palp able region of concern. FINDINGS: The breasts are heterogeneously dense, which may obscure small masses (ACR BI-RADS breast composition Category c). BB marker has been placed in the 12:00 axis periareolar right breast, marking the area of palpable concern. Stress only subjacent to this is a calcified oil cyst , similar to the prior exam, with progressive calcification measur ing approximately 1.5 cm. This appears to correlate with the palpable fo cus, however will be evaluated with ultrasound. Otherwise, there is stable post mammoplasty scarring in both breasts. There are no suspici ous masses, suspicious grouped calcifications, or developing areas of architectural distortion in either breast. The parenchymal pattern is stable from prior exams. There is no skin or axillary abnormality. ULTRASOUND: CLINICAL INFORMATION: As above. COMPARISON: None TECHNIQUE: Targeted sonographic evaluation was performed using a high frequency linear transducer. Attention was given to the 12:00 axis periareolar region right breast, to evaluate the area of palpable concern. Selected archived documentation. FINDINGS: RIGHT BREAST: There is redemonstration of a benign partially calcified oil cyst measuring 1 .0 x 1.1 x 1.1 cm directly subjacent to the BB marker, correlating with the area of palpable concern. This is benign. There are no suspici ous findings. U S/US breast RT limited mamm only IMPRESSION: There are no finding s in either breast suspicious for malignancy. Palpable area of con cern 12:00 periareolar right breast correlates with known partially calcified oil cyst. Additional benign findings related to prior breast reduction surgery. Recommend the patien t resume routine annual screening mammography. OVERALL ASSESSMENT: Mammography: BI-RADS 2 - Benign Findings Ultrasound: BI-RADS 2 - Benign Findings RECOMMENDATION: 1 year F/U This patient's information was entered into a reminder system with a target due date for their next mammogram. Electronically leonardo d by: Vinod Heller MD 05/29/2024 01:01 PM EDT Dictated By: Vinod Heller MD Signed By: <Electronically signed by Vinod Heller MD in OV> 05/29/24 1301 DD/ 1015 TD/TT: 05/29/24 1036 Digital Communications Manager: Froilan Hernández Reviewed date:12/16/2024 12:06:03 PM Interpretation: Performing Lab:[facility], [address] [place] [id number] Notes/Report: Froilan Hernández See Note Specimen held untested for 24 hours; Call to request Chemistry testing. Reason For Referral Reason right breast lump ins referral needed Diagnosis 1 Lump of right breast (N63.10) Referral Organization Bry Gill MD Referring Provider First Name Bry Referring Provider Last Name Jairo Referring Provider Speciality Internal M edicine Referred Provider Edison Choi Referred Provider Specialty Surgery General Notes Franny Curry 12:30:39 PM EDT > US and Mammogram pending with [facility], Franny Curry 05/30/2024 02:09:19 PM >per patient doesn't need referral due to Breast u/s showed benign cyst. Appt cancelled for 06-18-2024 at 11:30 Referral Priority Routine Medications Medication SIG (Take, Route, Frequency, Duration) Notes Start Date End Date Status Propranolol HCl ER 120 MG TAKE 1 CAPSULE BY MOUTH EVERY DAY for 90 Active Cyclobenzaprine HCl 5 MG 1 tablet at bed time as needed Orally twice a day for 10 days 07/23/2020 Not-Taking Ibuprofen 800 MG 1 tablet Orally Thre e times a day for 30 day(s) 07/24/2015 Not-Taking PARoxetine HCl 20 MG TAKE 1 TABLET BY [facility] EVERY DAY IN THE MORNING for 90 Active Imitrex STATdose System 6 MG/0.5ML as directed Subcutaneous daily as needed for 8 Not-Taking SUMAtriptan Succinate 100 MG TAKE 1 TABLET BY MOUTH EVERY DAY NEEDED for 9 Active LORazepam 1 MG TAKE 1/2 TABLET BY MOUTH NEEDED TWICE DAILY for 20 11/28/2024 Active Immunizations Vaccine Route Administration Date Status Comme nts Flu Vaccine IM Intramuscular 06/17/2014 Administered Flu Vaccine IM Intramuscular 05/01/2015 Administered Flu Vaccine IM Intramuscular 05/17/2016 Administered pt wa s given the vaccine at [facility] Fluarix Quadrivalent IM Intramuscular 05/10/2018 Administered Fluarix Quadrivalent Unknown 05/02/2020 Administered SARS-COV-2 Pfizer Unknown 07/16/2021 Administered [facility] SARS-COV-2 Pfizer Unknown 10/29/2020 Administered SARS-COV-2 Pfizer Unknown 11/19/2020 Administered Fluarix Quadrivalent Unknown 05/13/2021 Administered Fluarix Quadrivalent IM Intramuscular 06/10/2022 Administered Fluarix Quadrivalent - 150 IM Intramuscular 06/28/2024 Administered Social History Tobacco Use: Social History Observation Description Date Details (start date - stop date) Never Smoker NA - NA Tobacco Use/Smoking Question Answer Notes Patient is a nonsmoker Additional Findings: Tobacco Non-User Cu rrent non-smoker, currently using no form of tobacco Alcohol Screen Question Answer Notes Did you have a drink containing alcohol in the p ast year? 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 Problem 344279587 Lumbar disc dise ase (M51.9) Active confirmed Problem 0162583 Prediabetes (R73.09) Active confirmed Problem Osteoporosis (65945491) Osteoporosis (M81.0) Active confirmed Problem 6324107 Migraine with au ra and without status migrainosus, not intractable (G43.109) Active confirmed Problem 055806256 Cervical disc di sease (M50.90) Active confirmed Problem 290843623 Panic attacks (F41.0) Active confirme d Problem 842508241 Pure hypercholesterolemia (E78.00) Active confirmed Problem 95042584 Cholecystitis (K81.9) Active confirmed Problem 706385213810096 History of gastr itis (Z87.19) Active confirmed Vital Signs Blood pressure diastolic 60 mm Hg 06/07/2024 Height 64 in 06/07/2024 Blood pressure systolic 94 mm Hg 06/07/2024 Weight 170 lbs 06/07/2024 BMI 29.18 kg/m2 06/07/2024 Encounters Encounter Location Date Provider Diagnosis Bry Gill MD [address] [place] [id number] 06/28/2024 Bry Gill Acute abdominal pain R10.9 and Encounter for immunization Z23 Bry Gill MD [address] [place] [id number] 12/16/2024 Bry Gill Blood tests for rout ine general physical examination Z00.00 ; Lymphocytosis D72.820 ; Prediabetes R73.09 ; Pure hypercholesterolemia E78.00 and Vitamin D deficiency E55.[address] Gill MD [address] [place] [id number] 12/18/2023 Bry Gill Lipoma of left lower extremity D17.24 ; Encounter for general adult medical examination without abnormal findings Z00.00 ; Lipoma of right lower extremity D17.23 ; Migraine with aura and without status migrainosus, not intractable G43.109 and Vitamin D deficiency E55.9 Bry Gill MD [address] [place] [id number] 05/24/2024 Bry Gill Elevated LFTs R79.89 ; Acute abdominal pain R10.9 ; Breast lump in female N63.0 ; Positive blood culture R78.81 and Lump of right breast N63.10 Bry Gill MD [address] [place] [address] [id number] 06/07/2024 Bry Gill Acute abdominal pain R10.9 Bry Gill MD [address] [place] [address] [address] [place] [address] [id number] 05/23/2024 Bry Gill Assessments Encounter Date Diagnosis (ICD Code) Assessment Notes Treatment Notes Treatment Clinical Notes Section Notes 06/28/2024 Acute abdominal pain (ICD-10 - R10.9) 06/28/2024 Encounter for immunization (ICD-10 - Z23) 12/16/[address] ine general physical examination (ICD-10 - Z00.00) 12/18/2023 Lipoma of left lower extremity (ICD-10 - D17.24) 12/18/2023 Encounter for genera l adult medical examination without abnormal findings (ICD-10 - Z00.00) Labs reviewed and discussed with patient 05/24/2024 Elevated LFTs (ICD-1 0 - R79.89) pending labs 05/24/2024 Acute abdominal pain (ICD-10 - R10.9) 06/07/2024 Acute abdominal pain (ICD-10 - R10.9) has resolved and seems most likely that she passed a gall stone. lft's are coming to normal 12/16/2024 Lymphocytosis (ICD-1 0 - D72.820) 12/18/2023 Lipoma of right lowe r extremity (ICD-10 - D17.23) ORDER FAXED TO [facility] FOR BOOKING 05/24/2024 Breast lump in femal e (ICD-10 - N63.0) referral to [facility] 12/16/2024 Prediabetes (ICD-10 - R73.09) 12/18/2023 Migraine with aura a nd without status migrainosus, not intractable (ICD-10 - G43.109) has been doing much better 05/24/2024 Positive blood cultu re (ICD-10 - R78.81) call [facility] for the results/ request sent 12/16/2024 Pure hypercholesterolemia (ICD-10 - E78.00) 12/18/2023 Vitamin D deficiency (ICD-10 - E55.9) to go back on vit d 12/16/2024 Vitamin D deficiency (ICD-10 - E55.9) 05/24/2024 Lump of right breast (ICD-10 - N63.10) pending mammo Plan Of Treatment Pending Test Test Name Order Date Electrocardiogram (EKG) 03/28/2019 Electrocardiogram (EKG) 01/22/2016 Electrocardiogram (EKG) 03/01/2018 MAMMOGRAM DIGITAL BILATERAL DIAGNO 05/24 US SOFT TISSUE 12/18/2023 US BREAST RIGHT 05/24/2024 Comprehensive [place]. Panel Fast Lipid Panel 12/16/2024 Vitamin D 25-OH Total 12/16/2024 Microalbumin, Random 12/16/2024 MM screening mammo BI 12/10/2021 MR cervical spine wo con 06/10/2022 Hemoglobin A1c 12/16/2024 UA ClnCatch+Micro w/rflx Cult 12/16/2024 Future Test Test Name Order Date BONE DENSITY DEXA 04/03/2021 BONE DENSITY DEXA 04/11/2022 Next Appt Details Provider Name:Bry jameson, 12/23/2024 03:30:00 PM, [address] [place] [address], [address], [place], [place], [phone], Insurance Providers Payer Name Payer Address Payer Phone Subscriber Number Group Number Insured Name Patient Relationship to Insured Coverage Start Date Coverage End Date [employer] [address] [place], [place] [phone] [id number] Mariamaiol Meli fonseca Self - patient is the insured Medical (General) History Medical History History ICD Code 03/2018 - abnormal bone density - needs r epeat X 2 years 09/11/2019 - Colonoscopy by Dr. Jasso - negative; repeat 10 years Surgical History Surgery Date(Month/Year) partial hysterectomy cholecystectomy
--- OUTSIDE RECORDS SUMMARY | 2024-12-16 13:05 | XMS_ITS ---
Author Organization Bry Gill MD Address [address] [place] [phone] Care Team Providers Care Embedded Software Design Engineer Name Role Phone Bry Gill Primary Care Provider [phone] Allergies Allergen (clinical drug ingredient) Drug/Non Drug Allergy documented on EMR Reaction Allergy Type Onset Date Status flexeril (uncoded) burning skin Allergy Active sulfamethoxazole / trimethoprim bactrim (uncoded) vomiting Allergy Active morphine morphine (uncoded) itch Allergy Active REASON FOR VISIT 6 MO F/U Encounters Encounter Location Date Provider Diagnosis Bry Gill MD [facility] [address] [place] [id number] 2024 Bry Gill Plan Of Treatment Next Appt Details Provider Name:Bry Foster ier, 12/23/2024 03:30:00 PM, [address] [place] [address], [address] [place] [address], [phone], Progress Notes * Meli BAZAN EDOB: (59 yo F)Acc No.[id number]:2024 Progress Notes Patient:Dipti GARCIA Provider:?Bry Gill MD :1965???Age:59 Y???Sex:Female D ate:2024 Address:[address] [place] [address] , [id number] Subjective: * Chief Complaints: * ???1. 6 MO F/U. * ROS:?General/Constitutional:?Denies?Chills.?Denies?Fatigue.?Denies?Fever.?Denies?Headache.?ENT:?Denies?Sore throat.?Respiratory:?Denies?Cough.?Denies?Shortness of breath at rest.?Denies?Shortness of breath with exertion.?Gastrointestinal:?Denies?Diarrhea.?Denies?Nausea.? * Medical History:?03/2018 - ab normal bone density - needs repeat X 2 years, 09/11/2019 - Colonoscopy by Dr. Jasso - negative; repeat 10 years. * Allergies:?Morphine: Itch, B actrim: Vomiting, Flexeril: Burning Skin. Objective: * Vitals:? Assessment: Plan: * Treatment: * * The named appointment provid er may or may not be the originator of this progress note, and it is not deemed complete until electronically signed by the appointment provider. Sign off status: Pending * Provider:?Bry Gill MD Date:?1 08/25/2023 Generated for Sudeep rosa/Jw/eTruthitting on:?12/16/2024 01:05 PM EDT
--- OUTSIDE RECORDS SUMMARY | 2024-12-16 13:05 | XMS_ITS ---
Author Organization Bry Gill MD Address [address] [place], [place] [phone] Care Team Providers Care Furniture Designer Name Role Phone Bry Gill Primary Care Provider [phone] Results Component Value Reference Range Notes Liver Panel Reviewed date:06/28/2024 12:15:42 PM Interpretation: Performing Lab:[facility], [address] [place] [phone] Notes/Report: Bilirubin Total 0.7 0.0-1.0 mg/dL Bilirubin Direct 0.3 0.0-0.5 mg/dL Aspartate Amino Transferase 21 5-31 U/L Alanine Aminotransferase 22 0-31 U/L Total Protein 6.6 6.5-8.0 g/dL Albumin Level 3.8 3.5-5.0 g/dL Alkaline Phosphatase 96 39-117 U/L REASON FOR VISIT LFT Immunizations Vaccine Route Administration Date Status Comme nts Fluarix Quadrivalent - 150 IM Intramuscular 06/28/2024 Adm inistered Encounters Encounter Location Date Provider Diagnosis Bry Gill MD [address] [place], [place] [phone] 06/28/2024 Bry Gill Acute abdominal pain R10.9 and Encounter for immunization Z23 Assessments Encounter Date Diagnosis (ICD Code) Assessment Notes Treatment Notes Treatment Clinical Notes Section Notes 06/28/2024 Acute abdominal pain (ICD-10 - R10.9) 06/28/2024 Encounter for immunization (ICD-10 - Z23) Plan Of Treatment Next Appt Details Provider Name:Bry Foster ier, 12/23/2024 03:30:00 PM, [address], [address], [place], [place], [phone], Progress Notes * Meli BAZAN EDOB: (59 yo F)Acc No.[id number]:06/28/2024 Progress Note Patient:?Dipti BAZAN Provider:?Bry Gill MD :1965???Age:59 Y???Sex:Female D ate:06/28/2024 Address:[address] [place] [id number] Subjective: * Chief Complaints: * ???1. LFT. * Medical History:? Objective: * Vitals:? Assessment: * Assessment: 1.?Acute abdominal pain - R1 0.9 (Primary)???2.?Encounter for immunization - Z23??? Plan: * Treatment: * Immunizations:? Fluarix Quadrivalent - 150 : 0.5 mL (Dose No:1) (Route: Intramuscular) given by Conchita Burnett , Office Staff on Left Deltoid * Procedure Codes:?37065 FLU V ACCINE NO PRESERV 3 & >, 46597 IMMUNIZATION ADMIN, 44744 VENIPUNCT, ROUTINE* * * The named appointment provid er may or may not be the originator of this progress note, and it is not deemed complete until electronically signed by the appointment provider. Sign off status: Pending * Provider:?Bry Gill MD Date:?1 08/28/2023 Generated for Sudeep rosa/Jw/Tyler on:?12/16/2024 01:05 PM EDT
[2024-12-16 13:26] LABS: Alanine Aminotransferase 17 U/L (0-31); Albumin Level 4.3 g/dL (3.5-5.0); Alkaline Phosphatase 81 U/L (39-117); Anion Gap 12 (12-20); Aspartate Amino Transferase 23 U/L (5-31); Bilirubin Total 0.8 mg/dL (0.0-1.0); Blood Urea Nitrogen 18 mg/dL (9-16); Calcium 9.3 mg/dL (8.4-10.2); Carbon Dioxide 25 mmol/L (22-29); Chloride 107 mmol/L (96-108); Cholesterol 243 mg/dL (<200); Estimated Glomerular Filt Rate > 60; Glucose Fasting 91 mg/dL (60-99); Sodium 140 mmol/L (135-145); Total Protein 7.1 g/dL (6.5-8.0); Triglycerides 122 mg/dL (<150)
[2024-12-16 13:46] LABS: HDL Cholesterol 57 mg/dL (>40); LDL Cholesterol Calculated 162 mg/dL (<100)
[2024-12-16 13:58] LABS: Vitamin D 25-OH Total 43.6 ng/mL (>30)
== END 2024-12-16 11:16 | disposition home or self-care (01) ==
LOC: HO.LNP 11:15
PROVIDERS: Visit Provider Internal Medicine
DX: Z00.00 Encounter for general adult medical examination without abnormal findings (principal); D72.820 Lymphocytosis (symptomatic); R73.03 Prediabetes; E78.00 Pure hypercholesterolemia, unspecified; E55.9 Vitamin D deficiency, unspecified
CPT/HCPCS: 80053; 80061; 81001; 82043; 82306; 82570; 83036; 85025; 87086

== ENCOUNTER 2025-03-25 09:52 | Outpatient (REF) | payer BC, SELFPAY ==
--- OUTSIDE RECORDS SUMMARY | 2024-12-16 03:00 | XMS_ITS ---
Author Organization Bry Gill MD Address [address] [place] [phone] Care Team Providers Care Patient Liaison Name Role Phone Bry Gill Primary Care Provider Results Component Value Reference Range Notes Complete Blood Count Auto Di ff Reviewed date:12/16/2024 12:38:58 PM Interpretation: Performing Lab:[facility], [address] [place] [phone] Notes/Report: White Blood Count 6.3 4.8-10.8 X10*3/uL Red Blood Count 4.46 4.20-5.50 X10*6/uL Hemoglobin 14.2 12.0-16.0 g/dl Hematocrit 42.4 37.0-47.0 % Mean Corpuscular Volume 95.1 80.0-98.0 fL Mean Corpuscular Hemoglobin 31.8 27.0-33.0 pg Mean Corpuscular HGB Conc 33.5 31.0-35.0 g/dl Red Cell Distribution Width 12.8 11.0-16.0 % Platelet Count 251 160-400 X10*3/uL Mean Platelet Volume 9.7 9.4-12.3 fL Neutrophils Percent Auto 30.9 45-73 % Imm Gran Pct Auto 0.3 0.0-0.4 % Lymphocytes Percent Auto 49.9 20-40 % Monocytes Percent Auto 10.0 2-11 % Eosinophils Percent Auto 7.9 0-4 % Basophils Percent Auto 1.0 0-2 % NRBC Pct Auto 0.0 0.0-0.2 /100WBC Neutrophils Absolute Auto 2.0 2.0-8.3 x10*3/u L Imm Gran Abs Auto 0.02 0.00-0.03 X10*3/uL Lymphocytes Absolute Auto 3.2 1.2-4.9 X10*3/u L Monocytes Absolute Auto 0.6 0.1-1.2 X10*3/uL Eosinophils Absolute Auto 0.5 0.0-0.4 X10*3/u L Basophils Absolute Auto 0.1 0.0-0.2 X10*3/uL NRBC Abs Auto 0.000 0.0-0.012 X10*3/uL Comprehensive Momence. Panel Fa st Reviewed date:12/16/2024 04:57:29 PM Interpretation: Performing Lab:[facility], [address] [place] [phone] Notes/Report: Sodium 140 135-145 mmol/L Potassium 4.0 3.3-5.1 mmol/L Chloride 107 96-108 mmol/L Carbon Dioxide 25 22-29 mmol/L Anion Gap 12 12-20 Blood Urea Nitrogen 18 9-16 mg/dL Creatinine 0.86 0.5-1.4 mg/dL Estimated Glomerular Filt Rate > 60 Chronic Kidney Disease: Estimated GFR < 60 mL/min/1.73m2 Severe Kidney Disease: Estimated GFR < 15 mL/min/1.73m2 Glucose Fasting 91 60-99 mg/dL Calcium 9.3 8.4-10.2 mg/dL Bilirubin Total 0.8 0.0-1.0 mg/dL Aspartate Amino Transferase 23 5-31 U/L Alanine Aminotransferase 17 0-31 U/L Total Protein 7.1 6.5-8.0 g/dL Albumin Level 4.3 3.5-5.0 g/dL Alkaline Phosphatase 81 39-117 U/L Lipid Panel Reviewed date:12/16/2024 04:39:55 PM Interpretation: Performing Lab:[facility], [address] [place] [phone] Notes/Report: Triglycerides 122 <150 mg/dL Desirable Triglyceride: less than 150 mg/dL Borderline High Triglyceride 150-199 mg/dL High Triglyceride: 200-499 mg/dL Very High Triglyceride: greater than or equal to 5OO mg/dL Cholesterol 243 <200 mg/dL Desirable Cholesterol: less than 200 mg/dL Borderline High Cholesterol: 200-239 mg/dL High Cholesterol: greater than 239 mg/dL LDL Cholesterol Calculated 162 <100 mg/dL Desirable LDL: less than 100 mg/dL Near Optimal/Above Optimal LDL: 110-129 mg/dL Borderline High LDL: 130-159 mg/dL High LDL: 160-189 mg/dL Very High LDL: greater than or equal to 190 mg/dL HDL Cholesterol 57 >40 mg/dL Desirable HDL: greater than 40 mg/dL Note: This HDL assay may give artificially low results in patients with liver disease. Vitamin D 25-OH Total Reviewed date:12/16/2024 04:37:40 PM Interpretation: Performing Lab:[facility], [address] [place] [phone] Notes/Report: Vitamin D 25-OH Total 43.6 >30 ng/mL Health Based Reference Values* < 20 ng/mL Deficient 20-30 ng/mL Insufficient > 30 ng/mL Sufficient *Jamir SMALLS. N Engl J Med. 2007;357:266-280 There is no well-established upper level of normal vitamin D levels. Some laboratories use 50 ng/mL as an upper limit of normal. However, toxicity is patient-dependent and may occur at any level. Careful correlation with the patient's presentation is necessary and, if there is concern for vitamin D toxicity, treatment should be considered irrespective of the serum level. Care must be taken in interpreting Vitamin D results from different laboratories and methodologies. Published data demonstrated that results from patients undergoing hemodialysis may show a negative bias when tested with various automated 25-OH vitamin D assays when compared to LC-MS/MS. When testing samples from patients whose predominant form of Vitamin D is Vitamin D2, such as patients receiving Vitamin D2 supplementation, results that are subtherapeutic should be confirmed with another method such as LC-MS/MS. Microalbumin, Random Reviewed date:12/16/2024 04:40:26 PM Interpretation: Performing Lab:[facility], [address] [place] [phone] Notes/Report: Creatinine Urine 240.59 Microalbumin Urine 9.0 Microalbum/Creatinine Ratio Ur 3.7 <30 ug/mg cr Albumin/Creatinine Ratio Reference Ranges: Normal: < 30 ug/mg creatinine Microalbuminuria: 30 - 300 ug/mg creatinine Clinical Albuminuria: > 300 ug/mg creatinine Hemoglobin A1c Reviewed date:12/16/2024 02:02:26 PM Interpretation: Performing Lab:[facility], [address] [place] [phone] Notes/Report: Hemoglobin A1c % 5.2 <6.0 % Hemoglobin A1C Reference Range Adults: 4.8 - 6.0 % Non diabetic: < 6.0 % Goal: < 7.0 % Additional Action Suggested: > 8.0 % Note: Hemoglobin A1c results are invalid for patients with abnormal amounts of HbF. Blood transfusions may impact the HbA1c concentration in the patient sample. Estimated Average Glucose 103 eAG = Estimated average glucose which is %A1C expressed as average glucose, using the formula of the A1Y-Humwvlw Average Glucose study (ADAG), Diabetes Care, Vol.31,#8, Mar. 2007 UA ClnCatch+Micro w/rflx Cul t Reviewed date:12/16/2024 04:58:49 PM Interpretation: Performing Lab:[facility], [address] [place] [phone] Notes/Report: Urine, Clean Catch Color Urine Yellow Appearance Urine Clear PH 5.5 5.0-9.0 Glucose Urine UA Negative Negative mg/dL Urine Blood Negative Negative Specific [place] - Urine 1.025 1.005-1.025 Urine Protein Negative Neg-Trace mg/dL Urine Ketones Trace Negative mg/dL Nitrite Urine Negative Negative Leukocyte Esterase Urine Moderate (2+) Negative RBC Urine 0-2 0-2 /HPF WBC Urine 6-10 0-5 /HPF Squamous Epithelial Cell Urine 3-5 0-2 /HPF Bacteria Urine None Seen None Seen Hyaline Casts Urine 0-2 0-2 /LPF REASON FOR VISIT FASTING LABS Medications Medication SIG (Take, Route, Frequency, Duration) Notes Start Date End Date Status Cyclobenzaprine HCl 5 MG 1 tablet at bed time as needed Orally twice a day for 10 days 07/23/2020 Not-Taking PARoxetine HCl 20 MG TAKE 1 TABLET BY MI UT EVERY DAY IN THE MORNING for 90 Active Imitrex STATdose System 6 MG/0.5ML as directed Subcutaneous daily as needed for 8 Not-Taking SUMAtriptan Succinate 100 MG TAKE 1 TABLET BY MOUTH EVERY DAY NEEDED for 9 Active LORazepam 1 MG TAKE 1/2 TABLET BY MOUTH NEEDED TWICE DAILY for 20 11/28/2024 Active Propranolol HCl ER 120 MG TAKE 1 CAPSULE BY MOUTH EVERY DAY for 90 Active Ibuprofen 800 MG 1 tablet Orally Thre e times a day for 30 day(s) 07/24/2015 Not-Taking Encounters Encounter Location Date Provider Diagnosis Bry Gill MD [address] [place] [phone] 12/16/2024 Bry Gill Blood tests for rout ine general physical examination Z00.00 ; Lymphocytosis D72.820 ; Prediabetes R73.09 ; Pure hypercholesterolemia E78.00 and Vitamin D deficiency E55.9 Assessments Encounter Date Diagnosis (ICD Code) Assessment Notes Treatment Notes Treatment Clinical Notes Section Notes 12/16/2024 Blood tests for rout ine general physical examination (ICD-10 - Z00.00) 12/16/2024 Lymphocytosis (ICD-1 0 - D72.820) 12/16/2024 Prediabetes (ICD-10 - R73.09) 12/16/2024 Pure hypercholesterolemia (ICD-10 - E78.00) 12/16/2024 Vitamin D deficiency (ICD-10 - E55.9) Plan Of Treatment Next Appt Details Provider Name:Bry jameson, 12/18/2025 07:00:00 AM, [address] [place] [address], [address], [phone], Provider Name:Bry jameson, 12/25/2025 02:30:00 PM, [address] [place] [address], [place] [address], [place], [place], [phone], Progress Notes * Meli BAZAN EDOB: (59 yo F)Acc No.[id number]:12/16/2024 Progress Note Patient: Meli MCDANIEL Provider: Faye Gill MD :1965 A ge:59 Y S ex:Female Date:12/16/2024 Address:[address] [place] [address] [place], [phone] Subjective: * Chief Complaints: * 1 . FASTING LABS. * Medical History: * Medications: T aking Propranolol HCl ER 120 MG Capsule Extended Release 24 Hour TAKE 1 CAPSULE BY MOUTH EVERY DAY , Taking PARoxetine HCl 20 MG Tablet TAKE 1 TABLET BY MOUTH EVERY DAY IN THE MORNING , Taking LORazepam 1 MG Tablet TAKE 1/2 TABLET BY MOUTH NEEDED TWICE DAILY , Taking SUMAtriptan Succinate 100 MG Tablet TAKE 1 TABLET BY MOUTH EVERY DAY NEEDED , Not-Taking/PRN Ibuprofen 800 MG Tablet 1 tablet Orally Three times a day , Not-Taking/PRN Cyclobenzaprine HCl 5 MG Tablet 1 tablet at bedtime as needed Orally twice a day , Not-Taking/PRN Imitrex STATdose System 6 MG/0.5ML Solution Auto-injector as directed Subcutaneous daily as needed Objective: * Vitals: Assessment: * Assessment: 1. B lood tests for routine general physical examination - Z00.00 (Primary) 2 .?Lymphocytosis - D72.820 3 . P rediabetes - R73.09 4 . P ure hypercholesterolemia - E78.00 5 . V itamin D deficiency - E55.9 Plan: * Treatment: 2. L ymphocytosis L AB: Complete Blood Count Auto Diff (Collection Date & Time - 12/16/2024 07:00 AM) L AB: Comprehensive Momence. Panel Fast (Collection Date & Time - 12/16/2024 07:00 AM) L AB: Lipid Panel (Collection Date & Time - 12/16/2024 07:00 AM) L AB: Vitamin D 25-OH Total (Collection Date & Time - 12/16/2024 07:00 AM) L AB: Microalbumin, Random (Collection Date & Time - 12/16/2024 07:00 AM) L AB: Hemoglobin A1c (Collection Date & Time - 12/16/2024 07:00 AM) L AB: UA ClnCatch+Micro w/rflx Cult (Collection Date & Time - 12/16/2024 07:00 AM) 3. P rediabetes L AB: Complete Blood Count Auto Diff (Collection Date & Time - 12/16/2024 07:00 AM) L AB: Comprehensive Momence. Panel Fast (Collection Date & Time - 12/16/2024 07:00 AM) L AB: Lipid Panel (Collection Date & Time - 12/16/2024 07:00 AM) L AB: Vitamin D 25-OH Total (Collection Date & Time - 12/16/2024 07:00 AM) L AB: Microalbumin, Random (Collection Date & Time - 12/16/2024 07:00 AM) L AB: Hemoglobin A1c (Collection Date & Time - 12/16/2024 07:00 AM) L AB: UA ClnCatch+Micro w/rflx Cult (Collection Date & Time - 12/16/2024 07:00 AM) 4. P ure hypercholesterolemia L AB: Complete Blood Count Auto Diff (Collection Date & Time - 12/16/2024 07:00 AM) L AB: Comprehensive Momence. Panel Fast (Collection Date & Time - 12/16/2024 07:00 AM) L AB: Lipid Panel (Collection Date & Time - 12/16/2024 07:00 AM) L AB: Vitamin D 25-OH Total (Collection Date & Time - 12/16/2024 07:00 AM) L AB: Microalbumin, Random (Collection Date & Time - 12/16/2024 07:00 AM) L AB: Hemoglobin A1c (Collection Date & Time - 12/16/2024 07:00 AM) L AB: UA ClnCatch+Micro w/rflx Cult (Collection Date & Time - 12/16/2024 07:00 AM) 5. V itamin D deficiency L AB: Complete Blood Count Auto Diff (Collection Date & Time - 12/16/2024 07:00 AM) L AB: Comprehensive Momence. Panel Fast (Collection Date & Time - 12/16/2024 07:00 AM) L AB: Lipid Panel (Collection Date & Time - 12/16/2024 07:00 AM) L AB: Vitamin D 25-OH Total (Collection Date & Time - 12/16/2024 07:00 AM) L AB: Microalbumin, Random (Collection Date & Time - 12/16/2024 07:00 AM) L AB: Hemoglobin A1c (Collection Date & Time - 12/16/2024 07:00 AM) L AB: UA ClnCatch+Micro w/rflx Cult (Collection Date & Time - 12/16/2024 07:00 AM) * Procedure Codes: 3 [id number] VENIPUNCT, ROUTINE* * * The named appointment provid er may or may not be the originator of this progress note, and it is not deemed complete until electronically signed by the appointment provider. Sign off status: Pending * Provider: Faye Gill MD Date: 0 12/16/2024 Generated for Sudeep rosa/Jw/Louisitting on: 0 03/25/2025 10:39 AM EDT
--- OUTSIDE RECORDS SUMMARY | 2025-03-25 10:40 | XMS_ITS | Patient Health Record ---
Author Organization [facility] Address [address] [place] [address] Care Team Providers Care Data Services Developer Name Role Phone Bry Gill MD Primary Care Provider Evgeny Mcpherson [phone] Allergies Allergen (clinical drug ingredient) Drug/Non Drug Allergy documented on EMR Reaction Allergy Type Onset Date Status sulfamethoxazole / trimethoprim Bactrim vomiting Drug Allergy Active Reason For Referral No Information Medications Medication SIG (Take, Route, Frequency, Duration) Notes Start Date End Date Status Propranolol HCl ER 120 MG TAKE 1 CAPSULE BY MOUTH EVERY DAY Oral for 90 Active PARoxetine HCl 20 MG TAKE 1 TABLET BY MO UTH EVERY DAY IN THE MORNING Oral for 90 Active SUMAtriptan Succinate 100 MG as directed Orally Once a day PRN migraine Active Immunizations Vaccine Route Administration Date Status Comme nts Influenza Unknown 06/07/2019 Administered Social History Tobacco Use: Social History Observation Description Date Details (start date - stop date) Never Smoker NA - NA Tobacco Use/Smoking Question Answer Notes Patient is a nonsmoker Alcohol Screen Question Answer Notes Did you have a drink containing alcohol in the p ast year? No Points 0 Interpretation Negative Section Notes: Nonsmoker; no alcohol Problems Problem Type SNOMED Code ICD Code Onset Dates Problem Status W/U Status Risk Notes Problem [id number] Encounter for screening for malignant neoplasm of colon (Z12.11) Active confirmed Problem [id number] Preprocedural examination (Z01.818) Active confirmed Plan Of Treatment Future Test Test Name Order Date COLONOSCOPY 06/26/2019 Insurance Providers Payer Name Payer Address Payer Phone Subscriber Number Group Number Insured Name Patient Relationship to Insured Coverage Start Date Coverage End Date [facility] [address] [facility] [place] [phone] [id number] KARL STINSON Self - patient is the insured Medical (General) History Medical History History ICD Code Denies PA,DM,CVA,Lung disease,renal dise ase Anxiety Migraines GERD--fine after the Fundopl ication--describes an EGD, esophageal motility testing, and esophageal pH testing at [facility] prior to her surgery Surgical History Surgery Date(Month/Year) Cholecystectomy 2010 Partial hysterectomy 2013 Latrell fundiplication at [facility] 2017
[2025-03-25 11:02] LABS: Hemoglobin A1C 122.8814 umol/L; Total Hemoglobin (HGBA1C) 3601.6555 umol/L
[2025-03-25 11:16] LABS: Alanine Aminotransferase 19 U/L (0-31); Albumin Level 4.3 g/dL (3.5-5.0); Alkaline Phosphatase 105 U/L (39-117); Aspartate Amino Transferase 27 U/L (5-31); Cholesterol 172 mg/dL (<200); HDL Cholesterol 57 mg/dL (>40); Total Protein 7.0 g/dL (6.5-8.0); Triglycerides 87 mg/dL (<150)
== END 2025-03-25 09:53 | disposition home or self-care (01) ==
LOC: HO.LNP 09:52
PROVIDERS: Visit Provider Internal Medicine
DX: Z13.1 Encounter for screening for diabetes mellitus (principal); Z13.6 Encounter for screening for cardiovascular disorders; M25.559 Pain in unspecified hip
CPT/HCPCS: 80061; 80076; 82947; 83036